=== PATIENT | female | born 1960 | race Caucasian/White ===

== ENCOUNTER 2017-01-16 16:10 | Emergency (ER) | payer OTHER ==
[2017-01-16 16:20] VITALS: TEMP 97.6; BMI 28.9
--- NOTE | 2017-01-16 17:50 | PDOC ---
History of Present Illness - General History Source: Patient, Old Records Exam Limitations: No Limitations - History of Present Illness Initial Comments: 01/16/17 18:26 The patient is a 57 year old female, with a significant past medical history of hypertension, hyperlipidemia and breast CA s/p bilateral mastectomy ( approximately 7 years ago; currently in remission), who presents to the emergency department with worsening lower abdominal pain for the past 4 days. The patient reports that she was seen by Dr. Keller today for a routine visit. She mentioned to Dr. Keller that she was experiencing lower abdominal pain and he referred her to the ED for further evaluation. The patient reports that the abdominal pain has been constant over the past 4 days but notes that the pain does wax and wane in intensity. Currently in the ED, the patient rates the abdominal pain as a 9/10 in severity. She reports that the abdominal pain intermittently radiates to the lower back. The patient additionally reports urinary frequency but denies dysuria or hematuria. The patient denies fever, chills, nausea, vomiting, diarrhea or melena/bpr. The patient denies any vaginal bleeding. Allergies: None reported. Past Surgical History: Cholecystectomy, Bilateral Mastectomy. Social History: Non smoker. Denies alcohol or drug use. PCP: Dr. Maria L Kiser Oncologist: Dr. Tao Keller <Anat Parks - Last Filed: 01/16/17 22:35> <John Glover - Last Filed: 01/17/17 01:07> - General Chief Complaint: Pain Stated Complaint: ABD PAIN Time Seen by Provider: 01/16/17 17:45 Past History <Anat Parks - Last Filed: 01/16/17 22:35> - Past Medical History Cancer: Yes (breast) HTN: Yes Hypercholesterolemia: Yes - Surgical History Abdominal Surgery: Yes (hernia) Cholecystectomy: Yes - Psycho/Social/Smoking Cessation Hx Anxiety: No Suicidal Ideation: No Smoking History: Never smoked Have you smoked in the past 12 months: No Information on smoking cessation initiated: No Hx Alcohol Use: No Drug/Substance Use Hx: No Substance Use Type: None <John Glover - Last Filed: 01/17/17 01:07> - Past Medical History Allergies/Adverse Reactions: Allergies Allergy/AdvReac Type Severity Reaction Status Date / Time No Known Allergies Allergy Verified 01/16/17 16:16 Home Medications: Ambulatory Orders Ciprofloxacin [Cipro (Restricted To Id)] 500 mg PO BID #20 tablet 01/17/17 Metronidazole [Flagyl -] 500 mg PO QID #40 tablet 01/17/17 Tramadol HCl 50 mg PO TID #14 tablet MDD 3 01/17/17 Review of Systems - Review of Systems Able to Perform ROS?: Yes Comments:: 01/16/17 18:11 CONSTITUTIONAL: No fever, no chills, no fatigue EYES: No visual changes ENT: No ear pain, no sore throat CARDIOVASCULAR: No chest pain, no palpitations RESPIRATORY: No cough, no SOB GI: +Abdominal pain. No nausea, no vomiting, no constipation, no diarrhea GENITOURINARY: +Urinary frequency. No dysuria, no hematuria MUSCULOSKELETAL: No back pain, no joint pain, no myalgias SKIN: No rash NEURO: No headache <Anat Parks - Last Filed: 01/16/17 22:35> *Physical Exam - Vital Signs Last Vital Signs Temp Pulse Resp BP Pulse Ox 97.6 F 77 18 151/109 98 01/16/17 16:16 01/16/17 16:16 01/16/17 16:16 01/16/17 16:16 01/16/17 16:16 - Physical Exam Comments: 01/16/17 18:14 CONSTITUTIONAL: Well-appearing; well-nourished; in no apparent distress. HEAD: Normocephalic; atraumatic. EYES: PERRL; EOM intact. ENMT: Dry mucous membranes. External appears normal; normal oropharynx. NECK: Supple; non-tender; no cervical lymphadenopathy. CARD: Normal S1, S2; no murmurs, rubs, or gallops. RESP: Normal chest excursion with respiration; breath sounds clear and equal bilaterally; no wheezes, rhonchi, or rales. ABD: Diffuse lower abdominal tenderness, worst in the RLQ and LLQ with voluntary guarding. No rebound. Soft, non-distended; no palpable organomegaly, no palpable hernias. EXT: Normal ROM in all four extremities; non-tender to palpation; distal pulses intact. SKIN: Warm, dry, no rash. NEURO: No focal neurological deficiencies. Normal speech, normal gait. <[place]at Paiz - Last Filed: 01/16/17 22:35> - Vital Signs Last Vital Signs Temp Pulse Resp BP Pulse Ox 97.6 F 77 18 151/109 98 01/16/17 16:16 01/16/17 16:16 01/16/17 16:16 01/16/17 16:16 01/16/17 16:16 <John Glover - Last Filed: 01/17/17 01:07> ED Treatment Course - LABORATORY CBC & Chemistry Diagram: 01/16/17 18:25 01/16/17 19:50 <Anat Parks - Last Filed: 01/16/17 22:35> - LABORATORY CBC & Chemistry Diagram: 01/16/17 18:25 01/16/17 19:50 <John Glover - Last Filed: 01/17/17 01:07> Medical Decision Making - Medical Decision Making 01/16/17 22:35 EXAM: CT/ABDOMEN & PELVIS CT W/O CONTR Reviewed By: Dr. Camron Verdugo IMPRESSION: Few diverticula in the sigmoid colon without gross evidence of acute diverticulitis. Partially distended urinary bladder with apparent thickening of its superior/anterior wall. There is mild stranding of the surrounding fat/mesentery that is extending to superior margin of the uterus. Rule out cystitis versus remote possibility of a ruptured diverticulum with mild acute diverticulitis. No collection/abscess is identified. Correlate clinically for further evaluation. <Anat Parks - Last Filed: 01/16/17 22:35> *DC/Admit/Observation/Transfer - Attestations Scribe Attestion: 01/16/17 18:01 Documentation prepared by Anat Parks, acting as medical billing assistant for John Glover MD. <Anat Parks - Last Filed: 01/16/17 22:35> <John Glover - Last Filed: 01/17/17 01:07> Diagnosis at time of Disposition: Cystitis Diverticulitis Qualifiers: Diverticulitis site: large intestine Diverticulitis bleeding: without bleeding Diverticulitis complication: without perforation or abscess Qualified Code(s): K57.32 - Diverticulitis of large intestine without perforation or abscess without bleeding - Discharge Dispostion Disposition: HOME Condition at time of disposition: Stable - Referrals Referrals: Maria L Kiser MD [Primary Care Provider] - - Patient Instructions Printed Discharge Instructions: Acute Cystitis, DI for Diverticulitis
[2017-01-16] MEDS ORDERED: SODIUM CHLORIDE 1,000 ML IV STA (18:11)
[2017-01-16 19:00] LABS: BASOPHIL 0.9 % (0-2.0); EOSINOPHIL 1.5 % (0-4.5); MCH 27.8 pg (25.7-33.7); MCHC 32.8 g/dl (32.0-36.0); MEAN CELL VOLUME 84.7 fl (80-96); MEAN PLT VOLUME 9.6 fl (7.5-11.1); NEUTROPHILS 54.3 % (42.8-82.8); PLATELET COUNT 252 K/MM3 (134-434); RDW 14.3 % (11.6-15.6); WHITE BLOOD COUNT 8.4 K/mm3 (4.0-10.0)
[2017-01-16 19:03] LABS: INR 1.03 (0.82-1.09); PROTHROMBIN TIME (PATIENT) 11.3 SEC (9.98-11.88)
[2017-01-16 19:31] LABS: URINE APPEARANCE CLEAR; URINE BILIRUBIN NEGATIVE (NEGATIVE); URINE BLOOD NEGATIVE (NEGATIVE); URINE COLOR LT. YELLOW; URINE GLUCOSE (UA) NEGATIVE (NEGATIVE); URINE KETONE NEGATIVE (NEGATIVE); URINE NITRITE NEGATIVE (NEGATIVE); URINE PROTEIN NEGATIVE (NEGATIVE); URINE UROBILINOGEN 0.2 E.U/dl E.U./dl (0.2-1.0)
[2017-01-16 19:41] LABS: URINE LEUK ESTERASE TRACE (NEGATIVE)
[2017-01-16 20:24] LABS: URINE RBC 0-3 /hpf (0-3); URINE WBC 0-3 /hpf (3-5)
[2017-01-16 20:32] LABS: ANION GAP 9 (8-16); CALCIUM 9.3 mg/dL (8.5-10.1); CO2 29 mmol/L (21-32); GLUCOSE,RANDOM 97 mg/dL (74-106)
[2017-01-16 20:40] LABS: ALK PHOS 119 U/L (45-117); BILIRUBIN,TOTAL 0.3 mg/dL (0.2-1.0); CREATININE 0.6 mg/dL (0.55-1.02); SGOT/AST 24 U/L (15-37); SGPT/ALT 33 U/L (12-78); TOT PROT 7.6 g/dl (6.4-8.2)
[2017-01-16] MEDS ORDERED: CIPROFLOXACIN 400 MG/D5W 200 ML IVPB ONE (23:10)
[2017-01-16] MEDS ORDERED: METRONIDAZOLE 500 MG PREMIXED 100 ML IVPB ONE (23:10)
[2017-01-17] MEDS ORDERED: metroNIDAZOLE 250 MG TABLET PO ONE (00:18)
[2017-01-17] MEDS ORDERED: metroNIDAZOLE 250 MG TABLET ONE (00:21)
[2017-01-17 00:53] VITALS: BP 143/87; PULSE 73
== END 2017-01-17 01:13 | disposition home or self-care (01) ==
LOC: JER 16:10
PROC: 3E0337Z Introduction of Electrolytic and Water Balance Substance into Peripheral Vein, Percutaneous Approach (ICD-10-PCS; principal; 2017-01-16)
PROC: 3E03329 Introduction of Other Anti-infective into Peripheral Vein, Percutaneous Approach (ICD-10-PCS; 2017-01-16)
DX: K57.20 Diverticulitis of large intestine with perforation and abscess without bleeding (principal); N30.00 Acute cystitis without hematuria
CPT/HCPCS: 36415; 74176-TC; 80053; 81003; 81015; 83690; 85025; 85610; 87086; 99282-25; Q9967